=== PATIENT | female | born 1995 | race Caucasian/White ===

== ENCOUNTER 2017-12-04 12:29 | Emergency (ER) | payer BC ==
[2017-12-04] MEDS ORDERED: Ibuprofen 200 MG TAB ONE (12:45)
[2017-12-04 13:18] LABS: #Lymphocytes 0.4 thou/uL (1.20-3.40); #Monocytes 0.3 thou/uL (0.11-0.59); #Neutrophils 3.1 thou/uL (1.40-6.50); %Basophils 0.4 % (0.0-1.0); %Eosinophils 0.1 % (0.0-10.0); %Lymphocytes 9.2 % (21.0-51.0); %Neutrophils 83.3 % (42.0-75.0); Hemoglobin 13.7 g/dL (12.0-16.0); Mean Corpuscular HGB CONC 33.8 g/dL (32.0-36.0); Mean Corpuscular Hemoglobin 30.8 pg (27.0-31.0); Mean Corpuscular Volume 91.3 fl (81.0-99.0); Mean Platelet Volume 8.4 fL (7.4-10.4); Platelet Count 144 thou/uL (130-400); RBC Distribution Width 11.5 % (11.5-14.5); Red Blood Cell (RBC) Count 4.46 mill/uL (4.20-5.40); White Blood Cell (WBC) Count 3.8 thou/uL (4.8-10.8)
[2017-12-04 13:27] LABS: ALT (SGPT) 15 U/L (8-55); AST (SGOT) 19 U/L (5-34); Albumin 4.2 g/dL (3.5-5.0); Alkaline Phosphatase 61 U/L (40-150); Anion Gap 14 mmol/L (10-20); BUN (Urea Nitrogen) 14 mg/dL (7.0-18.7); Bilirubin, Total 0.2 mg/dL (0.2-1.2); Calc. Creatinine Clearance 0 mL/min (70-130); Calcium 9.1 mg/dL (7.8-10.44); Carbon Dioxide 22 mmol/L (22-29); Chloride 107 mmol/L (98-107); Estimated GFR-MDRD 82; Globulin 2.9 g/dL (2.4-3.5); Glucose 97 mg/dL (70-105); Potassium 3.9 mmol/L (3.5-5.1); Protein, Total 7.1 g/dL (6.0-8.3); Sodium 139 mmol/L (136-145)
--- NOTE | 2017-12-04 15:04 | RAD ---
CHEST 2 VIEWS: HISTORY: Cough and fever. FINDINGS: Cardiac silhouette and pulmonary vasculature are unremarkable. Mediastinum is midline. There is no confluent airspace consolidation, pneumothorax, or pleural fluid evident. IMPRESSION: No active cardiopulmonary abnormalities are demonstrated. POS: [facility]
== END 2017-12-04 14:04 | disposition home or self-care (01) ==
LOC: SCSER 12:29
DX: J10.1 Influenza due to other identified influenza virus with other respiratory manifestations (principal); J45.909 Unspecified asthma, uncomplicated; Z79.899 Other long term (current) drug therapy
CPT/HCPCS: 36415; 71046; 80053; 83605; 85025; 87040; 94760; 96360

== ENCOUNTER 2018-09-14 14:06 | Outpatient (CLI) | payer BC ==
[2018-09-14 15:02] LABS: #Eosinphils 0.2 thou/uL (0.0-0.7); #Lymphocytes 2.2 thou/uL (1.20-3.40); #Monocytes 0.4 thou/uL (0.11-0.59); #Neutrophils 3.5 thou/uL (1.40-6.50); %Basophils 0.7 % (0.0-1.0); %Eosinophils 2.8 % (0.0-10.0); %Lymphocytes 35.5 % (21.0-51.0); %Monocytes 5.9 % (0.0-10.0); %Neutrophils 55.2 % (42.0-75.0); Hemoglobin 13.3 g/dL (12.0-16.0); Mean Corpuscular HGB CONC 32.7 g/dL (32.0-36.0); Mean Corpuscular Hemoglobin 31.7 pg (27.0-31.0); Mean Corpuscular Volume 96.9 fL (78.0-98.0); Mean Platelet Volume 9.3 fL (7.4-10.4); Platelet Count 225 thou/uL (130-400); RBC Distribution Width 11.5 % (11.5-14.5); White Blood Cell (WBC) Count 6.3 thou/uL (4.8-10.8)
[2018-09-14 15:11] LABS: BHCG - Serum Negative (NEGATIVE); Pregs Control Background? CLEAR/WHITE (CLR/WHITE); Pregs Control Bar Appear? YES (CONTROL BAR)
== END 2018-09-14 14:07 | disposition home or self-care (01) ==
LOC: LABBT 14:06
PROVIDERS: ATTEND Orthopaedic Surgery
DX: Z01.812 Encounter for preprocedural laboratory examination (principal); T85.848A Pain due to other internal prosthetic devices, implants and grafts, initial encounter
CPT/HCPCS: 84703; 85025

== ENCOUNTER 2018-09-16 05:54 | Day surgery (SDC) | payer BC ==
[2018-09-14 14:45] VITALS: BMI 17.7
[2018-09-16] MEDS ORDERED: CEFAZOLIN 2 GM/50 ML BAG ONE (07:08)
[2018-09-16] MEDS ORDERED: Fentanyl 100 MCG/2 ML VIAL ONE ×2 (07:22→09:13)
[2018-09-16] MEDS ORDERED: Midazolam HCl 2 mg/2 ml Vial ONE (07:22)
[2018-09-16] MEDS ORDERED: Bupivacaine HCl 0.5%/Epinephrine 1:200,000/PF 30 ml Vial ONE (07:53)
--- NOTE | 2018-09-16 11:44 | OP ---
DATE OF PROCEDURE: 09/16/2018 TYPE OF PROCEDURE: Removal of hardware in right leg, right tibia and right fibula through two separa te incisions. SURGEON: Ricki Grant M.D. ANESTHESIA: General. BLOOD LOSS: Minimal. SPECIMEN: None. DRAINS: None. COMPLICATIONS: None. TOURNIQUET TIME: 34 minutes. NARRATIVE REPORT: After appropriate consent was obtained, the patient was taken to the operating carmencita m where general anesthesia was induced. Right leg was prepped and draped in the usual sterile fashio n. I exsanguinated the leg and inflated the tourniquet to 250 mmHg. The medial side was opened. I used a C-arm to try and minimize the size of the incisions proximally and distally, opened up the ent scott incision, retracted the saphenous vein, found the plate ____ screws removed and the plate was del ivered from the wound. The fibula was approached laterally. I did everything possible to minimize t he length of the incision, but the incision was still fairly large. Dissected down to the plate. Th e plate was completely encased in bone. I had to chip the bone off the plate. Screws removed. Plat e was removed. Tourniquet was released. Irrigation performed. Hemostasis obtained. I injected Mar bairon. Subcutaneous tissue closed with 3-0 Vicryl. The skin was closed with avi. Sterile dress ings applied.
[2018-09-16] MEDS ORDERED: Ondansetron ODT 4 MG TAB ONE (11:47)
[2018-09-16] MEDS ORDERED: Ketorolac Tromethamine 30 MG/ML VIAL ONE (13:35)
[2018-09-16] MEDS ORDERED: Ondansetron PF 4 MG/2 ML Vial ONE (13:35)
[2018-09-16] MEDS ORDERED: PROPOFOL 200 MG/20 ML VIAL ONE (13:35)
[2018-09-16] MEDS ORDERED: Dexamethasone 20 MG/5 ML VIAL ONE (13:35)
[2018-09-16] MEDS ORDERED: Lidocaine 1% PF 5 ML VIAL ONE (13:35)
[2018-09-16] MEDS ORDERED: Metoclopramide HCl 10 MG/2 ML VIAL ONE (13:35)
== END 2018-09-16 12:08 | disposition home or self-care (01) ==
LOC: SDC 05:54
PROVIDERS: ATTEND Orthopaedic Surgery
PROC: 0QPJ04Z Removal of Internal Fixation Device from Right Fibula, Open Approach (ICD-10-PCS; principal; 2018-09-16)
DX: T84.84XA Pain due to internal orthopedic prosthetic devices, implants and grafts, initial encounter (principal); J45.909 Unspecified asthma, uncomplicated; Z87.81 Personal history of (healed) traumatic fracture; Z96.7 Presence of other bone and tendon implants
CPT/HCPCS: 76001; 96374; J0131; J0670; J1100; J1885; J2001; J2250; J2405; J2704; J2765; J3010; Q0162